=== PATIENT | male | born 1970 | race Caucasian/White ===

== ENCOUNTER 2018-01-16 18:59 | Emergency (ER) | payer MEDICAID, SELFPAY | END 2018-01-17 01:03 | disposition left against medical advice (07) | LOC: M ED 18:59 | DX: Z53.21 Procedure and treatment not carried out due to patient leaving prior to being seen by health care provider (principal) ==

== ENCOUNTER 2018-01-17 01:39 | Emergency (ER) | payer MEDICAID, SELFPAY ==
[2018-01-17] MEDS: ONDANSETRON 4 MG ORAL DISINTEGRATING TAB (Q0162 PER 1MG) PO (07:11)
[2018-01-17] MEDS: KETOROLAC 60 MG/2 ML VIAL (J1885) IM (07:12)
== END 2018-01-17 07:35 | disposition home or self-care (01) ==
LOC: M ED 01:39
DX: F11.23 Opioid dependence with withdrawal (principal); Z72.0 Tobacco use; Z88.5 Allergy status to narcotic agent; Z88.8 Allergy status to other drugs, medicaments and biological substances; Z91.018 Allergy to other foods
CPT/HCPCS: Q0162